=== PATIENT | male | born 1980 | race American Indian/Alaskan Native ===

== ENCOUNTER 2017-12-19 15:02 | Outpatient (CLI) | payer OTHER ==
--- NOTE | 2017-12-19 16:36 | XRay Report ---
XRAY LEFT SHOULDER THREE VIEWS: 12/19/17 15:02:00 CLINICAL: Left shoulder pain. FINDINGS: No fracture or dislocation. Normal glenohumeral joint. Normal AC joint. The soft tissues are normal. IMPRESSION: Normal.
== END 2017-12-19 15:03 | disposition home or self-care (01) ==
LOC: SPVIMAG 15:02
PROVIDERS: ATTEND Orthopaedic Surgery
DX: M25.512 Pain in left shoulder (principal)